=== PATIENT | female | born 1975 | race Two or more races ===

== ENCOUNTER 2021-03-12 22:35 | Emergency (ER) | payer SELFPAY ==
[~2021-03-12] VITALS: Ht 165.1 cm; Wt 84.1 kg
[2021-03-12 23:42] LABS: BILIRUBIN,URINE NEGATIVE (NEG); CLARITY,URINE CLEAR; COLOR,URINE YELLOW; NITRITE,URINE NEGATIVE (NEG); PROTEIN,URINE NEGATIVE (NEG-TRACE); UROBILINOGEN,URINE 0.2 mg/dL (0.2 mg/dL)
[2021-03-12 23:45] LABS: FECAL OB PT NEGATIVE (NEG)
[2021-03-12] MEDS ORDERED: ONDANSETRON PF 4 MG/2 ML VIAL. IVP ONE (23:45)
[2021-03-12] MEDS ORDERED: IV NORMAL SALINE 1000ML BAG 1,000 ML IV ONE (23:45)
[2021-03-12] MEDS ORDERED: KETOROLAC 30 MG/ML VIAL. IVP ONE (23:45)
[2021-03-12 23:47] LABS: BACTERIA,URINE 0 /HPF (0-FEW); RBC,URINE 0 /HPF (0-2); WBC,URINE RARE /HPF (0-4)
[2021-03-12 23:51] LABS: BASO # 0.1 x10^3/uL (0.0-0.2); BASO % 0 % (0-3); EOS # 0.2 x10^3/uL (0.0-0.7); EOS % 2 % (0-3); HEMATOCRIT 40.3 % (36.0-47.0); HEMOGLOBIN 13.3 g/dL (12.0-15.5); LYMPH # 3.3 x10^3/uL (1.0-4.8); LYMPH % 22 % (24-48); MEAN CORPUSCULAR HEMOGLOBIN 29 pg (25-35); MEAN CORPUSCULAR HGB CONC 33 g/dL (31-37); MEAN CORPUSCULAR VOLUME 88 fL (79-100); MONO # 0.8 x10^3/uL (0.0-1.1); MONO % 6 % (0-9); NEUT # 10.6 x10^3/uL (1.8-7.7); NEUT % 71 % (31-73); PLATELET COUNT 354 x10^3/uL (140-400); RED BLOOD COUNT 4.58 x10^6/uL (3.50-5.40); WHITE BLOOD COUNT 15.1 x10^3/uL (4.0-11.0)
[2021-03-13 00:02] LABS: CALCIUM 9.3 mg/dL (8.5-10.1); CREATININE 0.8 mg/dL (0.6-1.0); GFR 76.9; POTASSIUM 3.8 mmol/L (3.5-5.1)
[2021-03-13 00:08] LABS: ALBUMIN 3.8 g/dL (3.4-5.0); TOTAL BILIRUBIN 0.2 mg/dL (0.2-1.0); TOTAL PROTEIN 7.7 g/dL (6.4-8.2)
[2021-03-13] MEDS ORDERED: IOHEXOL 300 MG/ML 100ML VIAL. IV ONE (00:15)
[2021-03-13] MEDS ORDERED: CONTRAST GIVEN. MC PRN (00:15)
[2021-03-13 00:20] VITALS: BP 146/75
--- NOTE | 2021-03-13 00:36 | PHYS DOC ---
Past Medical History Past Surgical History: No Surgical History (LUDA AYALA APRN) Smoking Status: Never Smoker Alcohol Use: None (LUDA AYALA APRN) General Adult EDM: Chief Complaint: ABDOMINAL PAIN HPI: HPI: Patient is a 46-year-old female presents to the emergency department complaining of right upper quadrant pain for the past 3 hours. Patient reports she has had these problems for over 3 years and has been worked up several times but patient reports the doctors tell her they cannot find anything wrong with her. Patient reports dark stool for the past 3 days and noticed the same right upper quadrant pain when she noticed the dark black stool. Patient denies seeing bright red blood in her stool or her urine. Patient denies vaginal discharge, increased urinary frequency, urinary burning or urinary pressure, denies STI concerns, denies rashes or lesions to her vagina. Patient denies chest pains, chest congestion, chest palpitations, recent fever or chills. Patient denies syncopal or near syncopal episodes, denies dizziness. Patient does report nausea, patient reports trying to take pain medications but vomited each time today noticing fluid and anything she ate in her vomitus. Denies seeing blood in her vomitus. Patient is unable to articulate how many times she has vomited today. Patient reports history of diabetes and hypertension, denies allergies to medications. Patient denies other physical complaints or physical concerns. (LUDA AYALA APRN) Review of Systems: Review of Systems: 14 body systems of review of systems have been reviewed. See HPI for pertinent positives and negative responses, otherwise all other systems are negative, nonpertinent or noncontributory. Constitutional: Negative except as outlined in HPI above. Skin: Negative except as outlined in HPI above. Eyes: Negative except as outlined in HPI above. HENT: Negative except as outlined in HPI above. Respiratory: Negative except as outlined in HPI above. Cardiovascular: Negative except as outlined in HPI above. GI: Negative except as outlined in HPI above. : Negative except as outlined in HPI above. Musculoskeletal: Negative except as outlined in HPI above. Integument: Negative except as outlined in HPI above. Neurologic: Negative except as outlined in HPI above. Endocrine: Negative except as outlined in HPI above. Lymphatic: Negative except as outlined in HPI above. Psychiatric: Negative except as outlined in HPI above. (LUDA AYALA APRN) Heart Score: C/O Chest Pain: No Risk Factors: Risk Factors: DM, Current or recent (<one month) smoker, HTN, HLP, family history of CAD, obesity. Risk Scores: Score 0 - 3: 2.5% MACE over next 6 weeks - Discharge Home Score 4 - 6: 20.3% MACE over next 6 weeks - Admit for Clinical Observation Score 7 - 10: 72.7% MACE over next 6 weeks - Early Invasive Strategies (LUDA AYALA APRN) C/O Chest Pain: No (PEDRO RG MD) Current Medications: Current Medications Medications (Trade) Dose Ordered Sig/Gianna Start Time Stop Time Status Last Admin Dose Admin Info (CONTRAST GIVEN -- Rx MONITORING) 1 each PRN DAILY PRN 03/13/21 00:15 03/15/21 00:14 Iohexol (Omnipaque 300 Mg/ml) 75 ml 1X ONCE 03/13/21 00:15 03/13/21 00:16 DC Ketorolac Tromethamine (Toradol 30mg Vial) 30 mg 1X ONCE 03/12/21 23:45 03/12/21 23:46 DC 03/13/21 00:15 30 MG Ondansetron HCl (Zofran) 4 mg 1X ONCE 03/12/21 23:45 03/12/21 23:46 DC 03/13/21 00:15 4 MG Sodium Chloride 1,000 ml @ 1,000 mls/hr 1X ONCE 03/12/21 23:45 03/13/21 00:44 03/13/21 00:14 1,000 MLS/HR (LUDA AYALA APRN) Allergies: Allergies: Allergies Coded Allergies Type Severity Reaction Last Updated Verified No Known Drug Allergies 03/12/21 No (LUDA AYALA APRN) Physical Exam: PE: Constitutional: Well developed, well nourished, no acute distress, non-toxic appearance. Upon entering room for examination patient initially appeared uncomfortable however during physical examination appeared in no apparent distress. HENT: Normocephalic, atraumatic. Eyes: Conjunctiva normal, no discharge. Neck: Normal range of motion, no stridor. Cardiovascular: No cyanosis appreciated, distal cap refill less than 2 seconds. Lungs & Thorax: Patient is in no respiratory distress, no audible adventitious lung sounds appreciated. Abdomen: No masses no megaly, normal bowel sounds all 4 quadrants, no rebound tenderness, no Chopra sign, no psoas sign, no McBurney's point tenderness, patient does complain to pain with palpation of the right upper quadrant, rectal exam for stool collection for occult blood performed with female ED nurse at bedside for decision analyst, no lesions or blood around the rectum, no external or internal hemorrhoids appreciated, stool soft, dark brown, not black in color. Skin: Warm, dry, no erythema, no rash. Back: No tenderness, no deformities. Extremities: No tenderness, no cyanosis, no clubbing, ROM intact, no edema. [] Neurologic: Alert and oriented X 3, normal motor function, normal sensory function, no focal deficits noted. Psychologic: Affect normal, judgement normal, mood normal. (LUDA AYALA APRN) Current Patient Data: Labs: Laboratory Tests Test 03/12/21 22:50 03/12/21 22:58 03/12/21 23:28 03/12/21 23:45 Urine Collection Type Unknown Urine Color Yellow Urine Clarity Clear Urine pH 6.0 (<5.0-8.0) Urine Specific Hasty 1.010 (1.000-1.030) Urine Protein Negative mg/dL (NEG-TRACE) Urine Glucose (UA) Negative mg/dL (NEG) Urine Ketones (Stick) Negative mg/dL (NEG) Urine Blood Negative (NEG) Urine Nitrite Negative (NEG) Urine Bilirubin Negative (NEG) Urine Urobilinogen Dipstick 0.2 mg/dL (0.2 mg/dL) Urine Leukocyte Esterase Negative (NEG) Urine RBC 0 /HPF (0-2) Urine WBC Rare /HPF (0-4) Urine Squamous Epithelial Cells Occ /LPF Urine Bacteria 0 /HPF (0-FEW) POC Urine HCG, Qualitative Hcg negative (Negative) Stool Occult Blood Negative (NEG) White Blood Count 15.1 x10^3/uL (4.0-11.0) H Red Blood Count 4.58 x10^6/uL (3.50-5.40) Hemoglobin 13.3 g/dL (12.0-15.5) Hematocrit 40.3 % (36.0-47.0) Mean Corpuscular Volume 88 fL (79-100) Mean Corpuscular Hemoglobin 29 pg (25-35) Mean Corpuscular Hemoglobin Concent 33 g/dL (31-37) Red Cell Distribution Width 14.0 % (11.5-14.5) Platelet Count 354 x10^3/uL (140-400) Neutrophils (%) (Auto) 71 % (31-73) Lymphocytes (%) (Auto) 22 % (24-48) L Monocytes (%) (Auto) 6 % (0-9) Eosinophils (%) (Auto) 2 % (0-3) Basophils (%) (Auto) 0 % (0-3) Neutrophils # (Auto) 10.6 x10^3/uL (1.8-7.7) H Lymphocytes # (Auto) 3.3 x10^3/uL (1.0-4.8) Monocytes # (Auto) 0.8 x10^3/uL (0.0-1.1) Eosinophils # (Auto) 0.2 x10^3/uL (0.0-0.7) Basophils # (Auto) 0.1 x10^3/uL (0.0-0.2) Sodium Level 136 mmol/L (136-145) Potassium Level 3.8 mmol/L (3.5-5.1) Chloride Level 100 mmol/L (98-107) Carbon Dioxide Level 27 mmol/L (21-32) Anion Gap 9 (6-14) Blood Urea Nitrogen 20 mg/dL (7-20) Creatinine 0.8 mg/dL (0.6-1.0) Estimated GFR (Cockcroft-Gault) 76.9 BUN/Creatinine Ratio 25 (6-20) H Glucose Level 174 mg/dL (70-99) H Calcium Level 9.3 mg/dL (8.5-10.1) Total Bilirubin 0.2 mg/dL (0.2-1.0) Aspartate Amino Transferase (AST) 13 U/L (15-37) L Alanine Aminotransferase (ALT) 27 U/L (14-59) Alkaline Phosphatase 123 U/L (46-116) H Total Protein 7.7 g/dL (6.4-8.2) Albumin 3.8 g/dL (3.4-5.0) Albumin/Globulin Ratio 1.0 (1.0-1.7) Lipase 201 U/L (73-393) Laboratory Tests 12/12/21 23:45 Laboratory Tests 03/12/21 23:45 Vital Signs: Vital Signs Date Time Temp Pulse Resp B/P (MAP) Pulse Ox O2 Delivery O2 Flow Rate FiO2 03/12/21 22:46 97.9 83 15 178/82 (114) 100 Room Air 97.9 (LUDA AYALA APRN) EKG: EKG: [] (LUDA AYALA APRN) Radiology/Procedures: Radiology/Procedures: [] (LUDA AYALA APRN) Course & Med Decision Making: Course & Med Decision Making Pertinent Labs and Imaging studies reviewed. (See chart for details) 46-year-old female, vital signs reviewed, presents emergency department concerning right upper quadrant pain for the past 3 hours rating a 10 out of 10. Patient's physical examination concerning for acute abdominal process, patient's stool is fairly soft, this is unlikely a constipation presentation, will send occult blood stool sample, CBC, CMP, urinalysis assay, urine test. Will give 1 L normal saline, 4 mg Zofran for reported nausea, will hold on pain medication pending urine test. Urine test negative, will give 30 mg Toradol IV. Patient's occult blood stool study negative. Patient white blood cell count 15,100, this is a leukocytosis without neutrophilia, most likely related to reporting of vomiting today. All other labs unremarkable, patient's lipase is within normal limits. Wet read of and pelvis with IV contrast by Dr. Rg shows a stone in the gallbladder, discussed findings with patient, will give IM Bentyl, order sonogram of abdomen gallbladder study. End of shift report given to ED attending physician Dr. Swenson who has assumed patient care at 01:00. (LUDA AYALA APRN) Course & Med Decision Making Accepted patient care at end of FENDER MECHANIC APPRENTICE shift, pending ultrasound result (PEDRO RG MD) Dragon Disclaimer: Dragon Disclaimer: This electronic medical record was generated, in whole or in part, using a voice recognition dictation system. (LUDA YAALA APRN) Departure Departure Impression: Primary Impression: Cholelithiases Disposition: HOME / SELF CARE / HOMELESS Condition: STABLE Referrals: HUMZA KHAN MD Patient Instructions: Cholelithiasis Scripts Dicyclomine Hcl (DICYCLOMINE HCL) 20 Mg Tablet 1 TAB PO TID PRN for ABDOMINAL PAIN for 10 Days, #30 TAB 1 Refill Prov: PEDRO RG MD 03/13/21 LUDA AYALA APRN Mar 13, 2021 00:36 PEDRO RG MD Mar 13, 2021 02:26
--- NOTE | 2021-03-13 01:12 | RAD ---
CT ABDOMEN+PELVIS W History: Upper right quadrant pain Comparison: None. Technique: After administration of intravenous contrast, helical CT of the abdomen and pelvis was per formed from the lung bases through the ischial tuberosities. Coronal and sagittal reconstructions wer e obtained. 75 mL of Omnipaque 300 were used. One or more of the following dose reduction techniques were utilized: Automated exposure control (AEC), Adjustment of mA and/or kV according to patient size , Use of iterative reconstruction technique such as ASiR, CT scan done according to ALARA and image g ently/image wisely Abdomen Findings: The visualized lung bases are clear. The liver, pancreas, spleen, and bilateral adrenal glands are normal. Cholelithiasis Symmetric renal enhancement. There is no focal renal mass. There is no hydronephrosis. The visualized loops of small bowel are normal. The visualized loops of large bowel are normal. There is no evidence of bowel obstruction. Appendix is normal. There is no free fluid. There is no mesenteric or retroperitoneal adenopathy. The abdominal aorta is normal in caliber. Pelvis Findings: Urinary bladder is normal. Uterus is present with IUD in place. No pelvic free fluid. There is no pel nevin or inguinal adenopathy. There is no acute bony abnormality. IMPRESSION: 1. No acute findings. 2. Cholelithiasis. Electronically signed by: Que Zamarripa MD (03/13/2021 1:09 AM) [facility]
[2021-03-13] MEDS ORDERED: DICYCLOMINE 20 MG/2 ML VIAL. IM ONE (01:15)
[2021-03-13] MEDS ORDERED: DICY20TA PO (02:26)
--- NOTE | 2021-03-13 02:29 | RAD ---
EXAM: ULTRASOUND ABDOMEN LIMITED CLINICAL HISTORY: Reason: ABNORMAL CT, EVAL GB / Spl. Instructions: / History: COMPARISON: None available. TECHNIQUE: Limited ultrasound examination of the right upper quadrant of the abdomen was performed. FINDINGS: The head and body of the pancreas are unremarkable. The tail is obscured by intestinal gas.. Liver: The hepatic margin is smooth and the hepatic echogenicity is normal. There are no focal liver lesions. Flow seen within the portal veins. Biliary: Cholelithiasis. Mild gallbladder wall thickening measuring 4 mm. No pericholecystic fluid. There is no pain with direct transducer pressure over the gallbladder. Common bile duct measures 5 mm. Right Kidney: 10.1 cm in bipolar length. Normal renal cortical echotexture and thickness. No focal re nal lesion, shadowing renal calculus or hydronephrosis. Visualized portions of the abdominal aorta and inferior vena cava are unremarkable. There is no free fluid in the subhepatic space. IMPRESSION: Cholelithiasis with mild gallbladder wall thickening. No pericholecystic fluid. Findings could relate to acute or chronic cholecystitis, correlate with laboratory values. Normal caliber common bile duct. Electronically signed by: Que Zamarripa MD (03/13/2021 2:27 AM) [facility]
== END 2021-03-13 03:20 | disposition home or self-care (01) ==
LOC: ER 22:35
DX: K80.20 Calculus of gallbladder without cholecystitis without obstruction (principal)
CPT/HCPCS: 36415; 74177; 76705; 80053; 81001; 81025; 82274; 83690; 85025; 96361; 96372; 96374; 96375; 99285; J0500; J1885; J2405; J7030; Q9967